=== PATIENT | female | born 1950 | race Caucasian/White ===

== ENCOUNTER 2017-01-11 09:48 | Inpatient (IN) | payer MEDICARE, OTHER ==
[~2017-01-11] VITALS: Ht 152.4 cm; Wt 78.7 kg
--- NOTE | ~2017-01-11 | ECH ---
Transthoracic Echocardiography Report (TTE) Demographics Patient Name OSMANI TERAN, Date of Study 01/13/2017 [facility] [place] Patient Number [id number] Visit Number [id number] Date of 1950 Room Number 432 Gender Female Number Age 66 year(s) Referring Rosalba Callejas President [employer] Jo-Ann Dyson Physician RDCS Physician Interpreting King Keon Lockwood MD Psychology Teacher Physician Supervising Ordering Rosalba Callejas MD/RALPHP Physician Nurse Stress Sales Agent Conclusions Summary Technically adequate exam. The estimated left ventricular ejection fraction is 65%. The left ventricle is mildly dilated . The left atrium is mildly dilated by LA volume index measurement. No significant valvular abnormalities. Procedure Type of Study TTE procedure:Echo Complete SF. Procedure Date Date: 01/13/2017 Start: 03:35 PM Technical Quality: Adequate visualization Indications:Paroxysmal a-fib, Hypertension and Diabetes. Appropriate Use Criteria: 9 Height: 60 inches Weight: 177 pounds BSA: 1.77 m Rhythm: Atrial fibrillation HR: 88 bpm BP: 160/65 mmHg M-Mode/2D Measurements LV Diastolic Dimension: 5.67 cm LV Systolic Dimension: 3.95 cm LV Septum Diastolic: 0.8 cm LV PW Diastolic: 0.82 cm AO Root Dimension: 2.59 cm Cardiac Output: 4.2 l/min LA Dimension: 3.05 cm Cardiac Index: 2.37 l/min*m RV Diastolic Dimension: 3.19 cm LA volume index: 36 ml/m LVOT: 1.95 cm LVOT VTI: 16 cm RV Base: 3.4 cm LV Stroke volume: 47.76 ml RV Mid: 2.7 cm LV Stroke volume index: 26.98 ml/m TAPSE: 1.6 cm TDI-S': 12 cm/s Doppler Measurements AV Peak Velocity: 1.6 m/s MV Peak E-Wave: 1.3 m/s AV Peak Gradient: 10.24 mmHg AV Mean Gradient: 3.74 mmHg MV P1/2t: 60.6 msec LVOT Peak Velocity: 0.9 m/s AV Area (Continuity):2.5 cm MV Area (PHT): 3.63 cm TR Velocity:2.61 m/s PV Peak Velocity: 1.03 m/s TR Gradient:27.25 mmHg PV Peak Gradient: 4.28 mmHg Estimated RAP:5 mmHg Estimated PASP: 32.25 mmHg Estimated RVSP: 32 mmHg E' Septal Velocity: 0.08 m/s E' Lateral Velocity: 0.13 m/s RA Area: 15.48 cm Findings Left Ventricle The left ventricle is mildly dilated . Diastolic function indeterminate due to patient's arrhythmia. Right Ventricle Normal right ventricle structure and function. Left Atrium The left atrium is mildly dilated by LA volume index measurement. Right Atrium Normal right atrial size. Mitral Valve Normal mitral valve structure and function. Mild mitral regurgitation by color Doppler. Aortic Valve Normal aortic valve structure and function. Tricuspid Valve Normal tricuspid valve structure and function. Mild tricuspid regurgitation by color Doppler. Normal pulmonary pressures. Pulmonic Valve The pulmonic valve is not well visualized. Pericardial Effusion No evidence of pericardial effusion. Miscellaneous Visualized portions of the aortic root and ascending aorta appear normal in size. Pleural Effusion No evidence of pleural effusion. Signature
--- NOTE | 2017-01-12 14:41 | CO ---
ADMIT: 01/11/2017 RM/LOC: 432 [facility] MR#: [id number] 2620 [facility] [address] [place] [id number] ITA MABRY [address] [place] [address] Consultation SEX: F AGE: 66 : 1950 DATE OF CONSULTATION: 01/11/2017 ATTENDING PHYSICIAN: Hilda Navarrete CONSULTING PHYSICIAN: Jaime Moore MD REASON FOR CONSULTATION: Atrial fibrillation. HISTORY OF PRESENT ILLNESS: Ita is a pleasant 66-year-old female, who has no prior cardiac history but does have diabetes, hypertension, and chronic kidney disease, who was recently diagnosed with influenza. She says over the last couple of days, she has had worsening shortness of breath and felt palpitations and chest discomfort. She this morning presented to the emergency room and was found to be in atrial fibrillation with rapid ventricular response along with right lower lobe pneumonia. She has been having fever and chills. She has been very short of breath. She has been coughing. PAST MEDICAL HISTORY: 1. History of diabetes. 2. History of hypertension. 3. History of chronic kidney disease. 4. Recently-diagnosed influenza B on Friday. 5. Diagnosed on with pneumonia. ALLERGIES: NO KNOWN DRUG ALLERGIES. MEDICATIONS: 1. Proventil 2 puffs q.4 hours p.r.n. 2. Lotrel 5/40 mg daily. 3. Tarceva 5 mg daily. 4. Amaryl 4 mg b.i.d. 5. Glucosamine chondroitin daily. 6. Femara 2.5 mg daily. 7. Synthroid 137 mcg daily. 8. Glucophage 500 mg three tabs daily. 9. Toprol-XL 50 mg daily. 10.Onglyza 5 mg daily. 11.Clinoril 200 mg b.i.d. 12.Dyazide 37.5/25 mg daily. 13.Tamiflu 75 mg b.i.d. 14.Cough syrup p.r.n. SOCIAL HISTORY: She is . Denies any smoking history. Denies any alcohol use. Denies any illicit drug use. FAMILY HISTORY: No family history of premature coronary artery disease. REVIEW OF SYSTEMS: GENERAL: She has had generalized fatigue, fever, or chills. ADMIT: 01/11/2017 RM/LOC: 432 [facility] MR#: [id number] [address] [address] [place] [address] Consultation SEX: F AGE: 66 : 1950 EYES: Denies any visual changes. ENT: She has had sinus drainage. GI: Denies any nausea, vomiting, or diarrhea. GENITOURINARY: Denies any dysuria or hematuria. MUSCULOSKELETAL: She has had muscle aches. SKIN: Denies any rashes. LYMPH: Denies any swollen lymph nodes. NEUROLOGIC: No TIA or stroke symptoms. No headache. PSYCHIATRIC: Denies any anxiety or depression. CARDIAC: Denies any chest pain. She has had palpitations as described above. All other systems reviewed and negative. PHYSICAL EXAMINATION: VITAL SIGNS: Blood pressure 158/50, pulse 92 and regular, respirations 26, temperature 98.5, oxygen 95% on 2 L. When she initially presented, she was 84% on room air. GENERAL: She is in mild distress but she is alert, oriented, and conversant. HEENT: Normocephalic and atraumatic. Moist mucous membranes. NECK: Supple. No lymphadenopathy. No carotid bruits. HEART: Mildly tachycardic. There is no murmurs, rubs, or gallops. LUNGS: She has distant breath sounds with decreased breath sounds at the right base. She has some expiratory wheezes. ABDOMEN: Soft, nontender, and nondistended. EXTREMITIES: Show no cyanosis, clubbing, or edema. NEUROLOGIC: Cranial nerves II through XII intact. PSYCHIATRIC: She is alert, oriented, and appropriate. DIAGNOSTIC DATA: Troponin less than 0.015. Creatinine is up to 2.4, potassium is 5.2, sodium 135. White count 16.1, hemoglobin 11, platelets 244. Chest x- ray shows right lower lobe pneumonia. IMPRESSION AND PLAN: 1. Pneumonia. ADMIT: 01/11/2017 RM/LOC: 432 [facility] MR#: [id number] [id number] [place], [place] [address] [address] Consultation SEX: F AGE: 66 : 1950 2. Influenza. 3. Atrial fibrillation. She spontaneously cardioverted back to sinus. 4. Ahzam-cm-ggnzjir renal failure. 5. Hypertension. 6. Diabetes. RECOMMENDATIONS: Her atrial fibrillation is likely exacerbated by her influenza and pneumonia and she is back in sinus rhythm. Now, we will switch her Cardizem drip to an oral Cardizem. We will check an echocardiogram and TSH. Her CHADS2 Vasc score is 4, so I think she will need long-term anticoagulation which we can address prior to discharge. We will follow along and amend our plan as her care progresses. Jaime Moore MD/ rebecca JOB #: [id number] CC: Hilda Navarrete, Attending Physician Hilda Navarrete, Family Physician
--- NOTE | 2017-01-18 08:11 | ER ---
ADMIT: 01/11/2017 RM/LOC: 432 [facility] MR#: [id number] [address] [place], [place] [address] OSMANI TORRESNCITA HOWELL [address] [place] [address] Emergency Room Report SEX: F AGE: 66 : 1950 DATE: 01/11/2017 HISTORY OF PRESENT ILLNESS: A 66-year-old female, comes to the Emergency Department with shortness of breath. She has been seen by her primary doctor and diagnosed with influenza as well as a pneumonia, started on Ceftin. She states she is not getting any better and now shortness of breath is increasingly worsened, it is worse with activity. She further complains of fast racing heart and a productive cough. REVIEW OF SYSTEMS: A recent diagnosis of influenza and pneumonia. Complains of sinus drainage as well. PAST MEDICAL HISTORY: 1. Diabetes. 2. Hypertension. PHYSICAL EXAMINATION: GENERAL: Revealed a 66-year-old female, in mild amount of distress. HEENT: Normocephalic. LUNGS: She has mild respiratory distress. Wheezes bilaterally, prolonged expiration, decreased air movement. CARDIOVASCULAR: Tachycardia with no murmurs, rubs, or gallops. ABDOMEN: Obese, soft, and nontender. EXTREMITIES: Unremarkable. As noted on the monitor, her rates were in the 130s and 140s. EKG confirms atrial fibrillation RVR. At times, the patient spontaneously went to break on her own only to get back into the 150 and 160s. She was given Cardizem and then a Cardizem drip which maintained her rate around 100. A CBC showed a white count of 16.1, hemoglobin 11.0. Potassium 5.3, BUN 58, creatinine 2.4. Chest x-ray reveals right lower lobe infiltrate. DIAGNOSES: The patient is being admitted for: 1. Pneumonia. 2. Atrial fibrillation rapid ventricular response. 3. Chronic renal insufficiency. Gabriel Maldonado MD/ rebecca JOB #: [id number] CC: Hilda Navarrete MD, Attending Physician Hilda Navarrete MD, Family Physician
[2017-01-19] MEDS ORDERED: DELTASONE DPS20 MG PO (15:26)
[2017-01-19] MEDS ORDERED: BETAPACE DPS80 MG PO (15:26)
[2017-01-19] MEDS ORDERED: MONTELUKAST SOD10 MG PO (15:27)
[2017-01-19] MEDS ORDERED: KLOR-CON M2020 ME1 PO (15:27)
[2017-01-19] MEDS ORDERED: SYNTHROID DP0.137 MG PO (15:27)
[2017-01-19] MEDS ORDERED: FEMARA DPS2.5 MG PO (15:27)
--- NOTE | 2017-01-21 11:58 | DS ---
ADMIT: 01/11/2017 RM/LOC: [address] [place] [address] MR#: [id number] [address] [address] OSMANI TORRESLIDIA ITA K [facility] [place] [address] Discharge Summary SEX: F AGE: 66 : 1950 ADMISSION DATE: 01/11/2017 DISCHARGE DATE: 01/18/2017 DISCHARGE DIAGNOSES: 1. Pneumonia. 2. Influenza. 3. Atrial fibrillation with rapid ventricular response. 4. Acute on chronic renal failure. 5. Hypertension. 6. Diabetes mellitus, poorly controlled. 7. History of asthma. 8. Hypokalemia. 9. Dyspnea. 10.Edema. 11.Confusion. HOSPITAL COURSE: The patient was admitted. She was seen by Cardiology. She was treated aggressively for her atrial fibrillation with RVR as well as pneumonia and influenza. She did require quite a bit of oxygen. For her blood sugar she was changed over to insulin from oral medications. In general, she was doing much better. She was tapered down to just prednisone. The plan was for the patient to be discharged home. DISCHARGE MEDICATIONS: 1. Betapace 80 mg p.o. q.12 hours. 2. Prednisone 20 mg p.o. day x5. 3. Femara 3.5 p.o. daily. 4. KCl 20 mEq p.o. b.i.d.. 5. Singulair 10 mg p.o. at bedtime. 6. Synthroid 137 p.o. daily. ADMIT: 01/11/2017 RM/LOC: 432 [facility] MR#: [id number] [address] [address] ITA MABRY [facility] [place] [address] Discharge Summary SEX: F AGE: 66 : 1950 7. Cardizem 360 p.o. daily. 8. Xarelto 20 mg p.o. daily. 9. Xopenex q.i.d. 10.Levemir 20 units subcutaneous daily. 11.NovoLog 10 units with meals and supplemental sliding scale. 12.Otherwise, she was not sent home on any p.o. antibiotics. DISCHARGE INSTRUCTIONS: Her chest x-ray that was done on 01/17 showed that she had no further opacity. She was not really fevers and she had a normal white count. Otherwise, she is to follow up with Dr. Navarrete in 7 days. She is to do Accu-Cheks before every meal. She should roughly do a fluid restriction of 2 L a day. Irasema Gifford MD/ vdg JOB #: [id number] CC: Hilda Navarrete MD, Attending Physician Hilda Navarrete MD, Family Physician
--- NOTE | 2017-01-24 14:54 | CVR ---
ADMIT: 01/11/2017 RM/LOC: 432 [facility] MR#: [id number] [address] [address] ITA MABRY [address] [place] [address] Cardioversion Report SEX: F AGE: 66 : 1950 DATE: 01/17/2017 INDICATION: Ita is a 66-year-old female, who has history of diabetes, hypertension and was admitted with post influenza pneumonia. She presented with atrial fibrillation with rapid ventricular response. She initially converted back to sinus for a period of time but then for the last several days has had persistent atrial fibrillation that has been very difficult to rate control despite increasing doses of beta-ester. She has been on anticoagulation since she went into atrial fibrillation. So we did elect to proceed with cardioversion. PROCEDURES PERFORMED: 1. Direct current cardioversion. 2. Sedation by anesthesia. PROCEDURE IN DETAIL: Patient was n.p.o. and prepped in usual fashion. She was given propofol by Anesthesia for sedation. She received 120 joule synchronized biphasic shock which converted her from atrial fib to a normal sinus rhythm. She then had early recurrence within 30 seconds of her atrial fibrillation. We then proceeded with a second 120 joule biphasic shock which converted her back to sinus rhythm again. This time, she appeared to maintain sinus. We will keep her on Betapace for a rhythm control along with Xarelto for anticoagulation. SUMMARY: Successful cardioversion from atrial fibrillation to normal sinus rhythm. Jaime Moore MD/ rebecca JOB #: [id number] CC: Hilda Navarrete, Attending Physician Hilda Navarrete, Family Physician
== END 2017-01-18 17:40 | disposition home or self-care (01) | DRG 193 ==
LOC: ER 09:48 → 4PCU 12:03
PROVIDERS: ADMIT Internal Medicine
PROC: 5A2204Z Restoration of Cardiac Rhythm, Single (ICD-10-PCS; principal; 2017-01-17)
DX: J10.08 Influenza due to other identified influenza virus with other specified pneumonia (principal); J96.01 Acute respiratory failure with hypoxia; N17.9 Acute kidney failure, unspecified; J15.9 Unspecified bacterial pneumonia; I48.0 Paroxysmal atrial fibrillation; E11.649 Type 2 diabetes mellitus with hypoglycemia without coma; E87.6 Hypokalemia; I12.9 Hypertensive chronic kidney disease with stage 1 through stage 4 chronic kidney disease, or unspecified chronic kidney disease; E11.22 Type 2 diabetes mellitus with diabetic chronic kidney disease; N18.9 Chronic kidney disease, unspecified; Z68.34 Body mass index [BMI] 34.0-34.9, adult; D63.1 Anemia in chronic kidney disease; E11.65 Type 2 diabetes mellitus with hyperglycemia; E55.9 Vitamin D deficiency, unspecified; E03.9 Hypothyroidism, unspecified; M15.9 Polyosteoarthritis, unspecified; E66.9 Obesity, unspecified; J45.20 Mild intermittent asthma, uncomplicated; Z85.3 Personal history of malignant neoplasm of breast; Z79.84 Long term (current) use of oral hypoglycemic drugs; Z82.49 Family history of ischemic heart disease and other diseases of the circulatory system; Z87.891 Personal history of nicotine dependence

== ENCOUNTER → 2017-03-13 | Outpatient (CLI) | payer MEDICARE, OTHER ==
[~2017-03-13] MED LIST: BETAPACE DPS80 MG PO; DELTASONE DPS20 MG PO; FEMARA DPS2.5 MG PO; KLOR-CON M2020 ME1 PO; MONTELUKAST SOD10 MG PO; SYNTHROID DP0.137 MG PO
== END | disposition home or self-care (01) ==
LOC: RAD.S 13:00
DX: Z12.31 Encounter for screening mammogram for malignant neoplasm of breast (principal); R92.1 Mammographic calcification found on diagnostic imaging of breast; N63 Unspecified lump in breast; Z98.890 Other specified postprocedural states